=== PATIENT | female | born 2000 | race African-American/Black ===

== ENCOUNTER 2019-03-31 18:01 | Emergency (ER) | payer SELFPAY ==
[~2019-03-31] VITALS: Ht 162.6 cm; Wt 67.0 kg
[2019-04-01 00:51] LABS: BASOPHILS % 0.3 % (0.0-2.0); EOSINOPHILS % 1.2 % (0.0-5.0); HEMATOCRIT. 36.2 % (36.0-48.0); HEMOGLOBIN. 11.5 g/dL (12.0-16.0); LYMPHOCYTES % 46.2 % (20.0-50.0); MEAN CORPUSCULAR VOLUME 72.5 fL (81.0-99.0); MEAN PLATELET VOLUME 10.3 fl (7.4-10.4); NEUTROPHILS % 45.3 % (40.0-76.0); PLATELET 243 x1000/uL (130-400); RED BLOOD CELL COUNT 4.99 mill/uL (4.2-5.4); RED CELL DISTRIBUTION WIDTH 15.4 % (11.6-14.6)
[2019-04-01 01:04] LABS: CHLORIDE 109 mEq/L (98-107)
[2019-04-01 02:12] VITALS: BP 113/63
== END 2019-04-01 02:15 | disposition home or self-care (01) ==
LOC: ER 18:01
DX: K64.4 Residual hemorrhoidal skin tags (principal)
CPT/HCPCS: 36415; 81025; 82270; 99283